=== PATIENT | female | born 1995 | race American Indian/Alaskan Native ===

== ENCOUNTER 2017-12-07 04:56 | Emergency (ER) | payer BC, MEDICAID ==
[2017-12-07] MEDS ORDERED: ZOFRAN IM ONE (05:36)
[2017-12-07 07:12] LABS: Basophils % (Auto) 0.2 % (0.0-1.8); Eosinophils % (Auto) 0.1 % (0.0-4.3); Hematocrit 36.3 % (30.3-42.9); Hemoglobin 12.6 gm/dl (10.1-14.3); Lymphocytes # (Auto) 1.1 K/mm3 (1.2-5.4); Lymphocytes % (Auto) 8.9 % (13.4-35.0); Mean Corpuscular HGB Conc 35 % (30-34); Mean Corpuscular Hemoglobin 32 pg (28-32); Mean Corpuscular Volume 94 fl (79-97); Monocytes # (Auto) 0.5 K/mm3 (0.0-0.8); Monocytes % (Auto) 4.4 % (0.0-7.3); Platelet Count 217 K/mm3 (140-440); Red Blood Count 3.88 M/mm3 (3.65-5.03); Red Cell Distribution Width 14.3 % (13.2-15.2)
[2017-12-07 07:28] LABS: Alanine Aminotransferase 12 units/L (7-56); Albumin 4.3 g/dL (3.9-5); BUN/Creatinine Ratio 15; Blood Urea Nitrogen 9 mg/dL (7-17); Calcium 9.4 mg/dL (8.4-10.2); Hemolysis Index 4
[2017-12-07 07:36] VITALS: BP 97/60
[2017-12-07] MEDS ORDERED: TORADOL IM ONE (08:48)
[2017-12-07] MEDS ORDERED: PERCOCET 5/325 PO ONE (08:48)
[2017-12-07 10:35] LABS: Bacteria,Urine 1+ /HPF (Negative); Bilirubin,Urine NEG (Negative); Blood,Urine MOD (Negative); Color,Urine Yellow (Yellow); Mucus,Urine 3+ /HPF; Urobilinogen,Urine < 2.0 mg/dL (<2.0)
--- NOTE | 2017-12-07 11:07 | Emergency Department Report ---
ED Abdominal Pain HPI - General Chief Complaint: Abdominal Pain Stated Complaint: MENSTRUAL CRAMPING Time Seen by Provider: 12/07/17 08:34 Source: patient Mode of arrival: Ambulatory Limitations: No Limitations - History of Present Illness Initial Comments: Ms. Flaherty is a healthy 22 yo female with hx of dysmenorrhea. She has had several dysmenorrhea since the onset of menses. Her [employer] specialist prescribed OCPs for the dysmenorrhea which she will begin on Monday. She attempted Ibuprofen. Her main concern is nausea/vomiting MD Complaint: other (menstrual cramping) -: Gradual Location: suprapubic Radiation: none Severity: moderate, severe Severity scale (0 -10): 10 Quality: cramping Consistency: constant Improves With: nothing Worsens With: nothing Context: other Treatments Prior to Arrival: NSAIDs - Related Data Previous Rx's Medication Instructions Recorded Last Taken Type Acetaminophen/Codeine [Tylenol 1 tab PO Q6H PRN #25 tab 08/20/14 Unknown Rx /Codeine # 3 tab] Ibuprofen [Motrin 600 MG tab] 600 mg PO Q8H PRN #50 tablet 08/20/14 Unknown Rx Ibuprofen 600 mg PO QID PRN #20 tablet 12/07/17 Unknown Rx Ondansetron [Zofran Odt] 4 mg PO TID #9 tab.rapdis 12/07/17 Unknown Rx Allergies Allergy/AdvReac Type Severity Reaction Status Date / Time No Known Allergies Allergy Verified 08/19/14 20:07 ED Review of Systems ROS: Stated complaint: MENSTRUAL CRAMPING Other details as noted in HPI Comment: All other systems reviewed and negative Constitutional: denies: fever Respiratory: denies: cough Cardiovascular: denies: chest pain ED Past Medical Hx - Past Medical History Previous Medical History?: No - Surgical History Past Surgical History?: No - Social History Smoking Status: Current Every Day Smoker Substance Use Type: Alcohol - Medications Home Medications: Home Medications Medication Instructions Recorded Confirmed Last Taken Type Acetaminophen/Codeine [Tylenol 1 tab PO Q6H PRN #25 tab 08/20/14 Unknown Rx /Codeine # 3 tab] Ibuprofen [Motrin 600 MG tab] 600 mg PO Q8H PRN #50 tablet 08/20/14 Unknown Rx Ibuprofen 600 mg PO QID PRN #20 tablet 12/07/17 Unknown Rx Ondansetron [Zofran Odt] 4 mg PO TID #9 tab.rapdis 12/07/17 Unknown Rx ED Physical Exam - General Limitations: No Limitations General appearance: alert, in no apparent distress, other (healthy well appearing. Appears Comfortable) - Head Head exam: Present: atraumatic, normocephalic - Eye Eye exam: Present: normal appearance - ENT ENT exam: Present: mucous membranes moist - Neck Neck exam: Present: normal inspection - Respiratory Respiratory exam: Present: normal lung sounds bilaterally. Absent: respiratory distress, wheezes, rales, rhonchi - Cardiovascular Cardiovascular Exam: Present: regular rate, normal rhythm, normal heart sounds. Absent: bradycardia, tachycardia, irregular rhythm, systolic murmur, diastolic murmur, rubs, gallop - GI/Abdominal GI/Abdominal exam: Present: soft, normal bowel sounds. Absent: distended, tenderness, guarding, rebound - Extremities Exam Extremities exam: Present: normal inspection - Back Exam Back exam: Present: normal inspection - Neurological Exam Neurological exam: Present: alert, oriented X3 - Psychiatric Psychiatric exam: Present: normal affect, normal mood - Skin Skin exam: Present: warm, dry, intact, normal color. Absent: rash ED Course Vital Signs 12/07/17 12/07/17 12/07/17 05:31 07:03 07:09 Temperature 98.4 F Pulse Rate 102 H Respiratory 18 16 Rate Blood Pressure 126/70 O2 Sat by Pulse 99 96 Oximetry 12/07/17 12/07/17 12/07/17 07:16 07:30 07:35 Temperature 98.7 F Pulse Rate Respiratory Rate Blood Pressure 103/67 97/60 O2 Sat by Pulse 99 97 Oximetry 12/07/17 09:18 Temperature Pulse Rate Respiratory 20 Rate Blood Pressure O2 Sat by Pulse Oximetry ED Medical Decision Making - Lab Data Result diagrams: 12/07/17 06:59 12/07/17 06:59 Laboratory Results - last 24 hr 12/07/17 12/07/17 12/07/17 06:59 06:59 06:59 WBC 12.0 H RBC 3.88 Hgb 12.6 Hct 36.3 MCV 94 MCH 32 MCHC 35 H RDW 14.3 Plt Count 217 Lymph % (Auto) 8.9 L [place] % (Auto) 4.4 Eos % (Auto) 0.1 Baso % (Auto) 0.2 Lymph # 1.1 L [place] # 0.5 Eos # 0.0 Baso # 0.0 Seg Neutrophils % 86.4 H Seg Neutrophils # 10.3 H Sodium 140 Potassium 3.5 L Chloride 99.7 Carbon Dioxide 24 Anion Gap 20 BUN 9 Creatinine 0.6 L Estimated GFR > 60 BUN/Creatinine Ratio 15 Glucose 108 H Calcium 9.4 Total Bilirubin 0.50 AST 19 ALT 12 Alkaline Phosphatase 65 Total Protein 7.9 Albumin 4.3 Albumin/Globulin Ratio 1.2 HCG, Qual Negative Urine Color Urine Turbidity Urine pH Ur Specific [place] Urine Protein Urine Glucose (UA) Urine Ketones Urine Blood Urine Nitrite Urine Bilirubin Urine Urobilinogen Ur Leukocyte Esterase Urine WBC (Auto) Urine RBC (Auto) U Epithel Cells (Auto) Urine Bacteria (Auto) Urine Mucus 12/07/17 Unknown WBC RBC Hgb Hct MCV MCH MCHC RDW Plt Count Lymph % (Auto) [place] % (Auto) Eos % (Auto) Baso % (Auto) Lymph # [place] # Eos # Baso # Seg Neutrophils % Seg Neutrophils # Sodium Potassium Chloride Carbon Dioxide Anion Gap BUN Creatinine Estimated GFR BUN/Creatinine Ratio Glucose Calcium Total Bilirubin AST ALT Alkaline Phosphatase Total Protein Albumin Albumin/Globulin Ratio HCG, Qual Urine Color Yellow Urine Turbidity Clear Urine pH 8.0 H Ur Specific [place] 1.033 H Urine Protein 100 mg/dl Urine Glucose (UA) Neg Urine Ketones 80 Urine Blood Mod Urine Nitrite Neg Urine Bilirubin Neg Urine Urobilinogen < 2.0 Ur Leukocyte Esterase Sm Urine WBC (Auto) 35.0 H Urine RBC (Auto) 14.0 U Epithel Cells (Auto) 5.0 Urine Bacteria (Auto) 1+ Urine Mucus 3+ Laboratory Results - last 24 hr 12/07/17 12/07/17 12/07/17 06:59 06:59 06:59 WBC 12.0 H RBC 3.88 Hgb 12.6 Hct 36.3 MCV 94 MCH 32 MCHC 35 H RDW 14.3 Plt Count 217 Lymph % (Auto) 8.9 L [place] % (Auto) 4.4 Eos % (Auto) 0.1 Baso % (Auto) 0.2 Lymph # 1.1 L [place] # 0.5 Eos # 0.0 Baso # 0.0 Seg Neutrophils % 86.4 H Seg Neutrophils # 10.3 H Sodium 140 Potassium 3.5 L Chloride 99.7 Carbon Dioxide 24 Anion Gap 20 BUN 9 Creatinine 0.6 L Estimated GFR > 60 BUN/Creatinine Ratio 15 Glucose 108 H Calcium 9.4 Total Bilirubin 0.50 AST 19 ALT 12 Alkaline Phosphatase 65 Total Protein 7.9 Albumin 4.3 Albumin/Globulin Ratio 1.2 HCG, Qual Negative Urine Color Urine Turbidity Urine pH Ur Specific [place] Urine Protein Urine Glucose (UA) Urine Ketones Urine Blood Urine Nitrite Urine Bilirubin Urine Urobilinogen Ur Leukocyte Esterase Urine WBC (Auto) Urine RBC (Auto) U Epithel Cells (Auto) Urine Bacteria (Auto) Urine Mucus 12/07/17 Unknown WBC RBC Hgb Hct MCV MCH MCHC RDW Plt Count Lymph % (Auto) [place] % (Auto) Eos % (Auto) Baso % (Auto) Lymph # [place] # Eos # Baso # Seg Neutrophils % Seg Neutrophils # Sodium Potassium Chloride Carbon Dioxide Anion Gap BUN Creatinine Estimated GFR BUN/Creatinine Ratio Glucose Calcium Total Bilirubin AST ALT Alkaline Phosphatase Total Protein Albumin Albumin/Globulin Ratio HCG, Qual Urine Color Yellow Urine Turbidity Clear Urine pH 8.0 H Ur Specific [place] 1.033 H Urine Protein 100 mg/dl Urine Glucose (UA) Neg Urine Ketones 80 Urine Blood Mod Urine Nitrite Neg Urine Bilirubin Neg Urine Urobilinogen < 2.0 Ur Leukocyte Esterase Sm Urine WBC (Auto) 35.0 H Urine RBC (Auto) 14.0 U Epithel Cells (Auto) 5.0 Urine Bacteria (Auto) 1+ Urine Mucus 3+ - Medical Decision Making Ms. Collins Diaz presents with dysmenorrhea. Pain markedly improved with treatment in the ED. I prescribed ibuprofen and Zofran. It appears to nausea vomiting as the main concern for patient. 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 Critical care attestation.: If time is entered above; I have spent that time in minutes in the direct care of this critically ill patient, excluding procedure time. ED Disposition Clinical Impression: Dysmenorrhea Disposition: - TO HOME OR SELFCARE Is pt being admited?: No Does the pt Need Aspirin: No Condition: Stable Instructions: Dysmenorrhea (ED) Prescriptions: Ibuprofen 600 mg PO QID PRN #20 tablet PRN Reason: Pain Ondansetron [Zofran Odt] 4 mg PO TID #9 tab.rapdis Referrals: EZEQUIEL SMITH [Other] - 3-5 Days Forms: Work/School Release Form(ED) Time of Disposition: 11:10
== END 2017-12-07 11:56 | disposition home or self-care (01) ==
LOC: ED 04:56
DX: N94.6 Dysmenorrhea, unspecified (principal); F17.200 Nicotine dependence, unspecified, uncomplicated
CPT/HCPCS: 36415; 80053; 81001; 84703; 85025; 96372; 99283; J1885; J2405